=== PATIENT | female | born 1970 | race Hispanic/Latino ===

== ENCOUNTER 2022-12-03 18:11 | Emergency (ER) | payer BC, OTHER ==
[~2022-12-03 18:11] MED LIST: Iopamidol 370 76% 100 ML VIAL ONE
[2022-12-03] MEDS ORDERED: Loperamide HCl 2 MG CAP ONE (20:57)
[2022-12-03] MEDS ORDERED: Ondansetron PF 4 MG/2 ML Vial ONE (20:57)
[2022-12-03] MEDS ORDERED: Sodium Chloride 0.9% 2,000 ML ONE (20:57)
[2022-12-03 21:23] LABS: BHCG - Serum Negative (NEGATIVE); Pregs Control Bar Appear? YES (CONTROL BAR)
[2022-12-03 21:34] LABS: ALT (SGPT) 31 U/L (8-55); AST (SGOT) 25 U/L (5-34); Alkaline Phosphatase 77 U/L (40-110); Anion Gap 14 mmol/L (10-20); BUN (Urea Nitrogen) 6 mg/dL (9.8-20.1); Bilirubin, Total 0.3 mg/dL (0.2-1.2); Calc. Creatinine Clearance 0 mL/min (70-130); Calcium 9.2 mg/dL (7.8-10.44); Carbon Dioxide 22 mmol/L (22-29); Chloride 100 mmol/L (98-107); Estimated GFR 100; Globulin 2.9 g/dL (2.4-3.5); Glucose 107 mg/dL (70-105); Lipase 11 U/L (8-78); Potassium 3.3 mmol/L (3.5-5.1); Protein, Total 6.9 g/dL (6.0-8.3); Sodium 133 mmol/L (136-145)
[2022-12-03 21:35] LABS: #Basophils 0.1 thou/uL (0.0-0.2); #Lymphocytes 1.1 thou/uL (1.20-3.40); #Monocytes 0.5 thou/uL (0.11-0.59); #Neutrophils 4.8 thou/uL (1.40-6.50); %Basophils 0.9 % (0.0-1.0); %Eosinophils 0.4 % (0.0-10.0); %Lymphocytes 16.8 % (21.0-51.0); %Monocytes 7.4 % (0.0-10.0); %Neutrophils 74.4 % (42.0-75.0); Hemoglobin 13.6 g/dL (12.0-16.0); Mean Corpuscular HGB CONC 33.8 g/dL (32.0-36.0); Mean Corpuscular Hemoglobin 31.6 pg (27.0-31.0); Mean Corpuscular Volume 93.4 fl (78.0-98.0); Mean Platelet Volume 7.2 fL (7.4-10.4); Platelet Count 244 10x3/uL (130-400); RBC Distribution Width 11.7 % (11.5-14.5); White Blood Cell (WBC) Count 6.4 10x3/uL (4.8-10.8)
[2022-12-03] MEDS ORDERED: Piperacillin/Tazobactam 4.5 GM VIAL ONE (22:52)
[2022-12-03] MEDS ORDERED: Sodium Chloride 0.9% 100 ML ONE (22:52)
[2022-12-03] MEDS ORDERED: Morphine 2 MG/ML VIAL ONE (23:55)
[2022-12-03] MEDS ORDERED: Dextrose 5 %-0.45 % NaCl 1,000 ML ONE (23:55)
[2022-12-04] MEDS ORDERED: Morphine 2 MG/ML VIAL ONE (01:32)
[2022-12-04] MEDS ORDERED: Morphine 4 MG/ML VIAL ONE ×2 (06:09→08:28)
[2022-12-04] MEDS ORDERED: Piperacillin/Tazobactam 4.5 GM VIAL ONE (07:41)
[2022-12-04] MEDS ORDERED: Sodium Chloride 0.9% 100 ML ONE (07:43)
[2022-12-04 08:20] LABS: SARS-CoV-2 NAA Rapid Test Not Detected (NotDetected)
== END 2022-12-04 09:45 | disposition short-term general hospital (02) ==
LOC: NAV ERS 18:11
DX: K52.9 Noninfective gastroenteritis and colitis, unspecified (principal); K37 Unspecified appendicitis; Z20.822 Contact with and (suspected) exposure to COVID-19; Z87.891 Personal history of nicotine dependence
CPT/HCPCS: 74177; 80053; 83605; 83690; 84703; 85025; 96361; 96365; 96367; 96375; 96376; J2270; J2272; J2405; J2543; J3490; J7042; J7050; Q9967; U0002

== ENCOUNTER 2024-09-02 16:36 | Outpatient (CLI) | payer BC | END 2024-09-02 16:37 | disposition home or self-care (01) | LOC: NAV RAD 16:36 | PROVIDERS: ATTEND Family Medicine | DX: G57.13 Meralgia paresthetica, bilateral lower limbs (principal); M47.816 Spondylosis without myelopathy or radiculopathy, lumbar region; M51.369 Other intervertebral disc degeneration, lumbar region without mention of lumbar back pain or lower extremity pain; M47.812 Spondylosis without myelopathy or radiculopathy, cervical region; M50.31 Other cervical disc degeneration, high cervical region | CPT/HCPCS: 72040; 72070; 72100; 72220 ==